=== PATIENT | female | born 1975 | race Caucasian/White ===

== ENCOUNTER 2017-12-27 20:57 | Emergency (ER) | payer OTHER ==
[2017-12-27] MEDS ORDERED: TORAdol 30 mg Injection IM ONE (21:50)
--- NOTE | 2017-12-27 21:54 | ERPHSYRPT ---
- History of Present Illness Time Seen by Provider: 12/27/17 21:51 Source: patient Exam Limitations: no limitations Patient Subjective Stated Complaint: pt states on monday she fell backwards and cought herself with her lt arm. states she has been having increased pain in her lt wrist since Triage Nursing Assessment: pt alert and oriented, answers questions approp. pt ambulatory with steady gait ntoed, respirations nonlabored with lungs cta. tenderness noted to lt wrist. cap refill and radial pulse wnl. Physician History: 42-year-old white female arrives with complaint of pain in her left wrist symptoms since Monday, 2 days ago. According to patient she fell backwards landing on her left wrist she has pain in her left wrist worse with movement. Past medical history includes ulcerative colitis. Past surgical history includes , tubal ligation. Occurred: days ago (2 days ago) Method of Injury: fell Quality: constant, aching Severity of Pain-Max: moderate Severity of Pain-Current: moderate Extremities Pain Location: wrist: left Modifying Factors: Improves With: nothing Associated Symptoms: none Allergies/Adverse Reactions: Sulfa (Sulfonamide Antibiotics) Allergy (Verified 12/27/17 21:42) Hives Home Medications: Loperamide HCl 2 mg [Imodium 2 mg] 2 mg PO DAILY 12/27/17 [History] Naproxen Sodium 220 mg [Aleve 220 MG] 220 mg PO DAILY 12/27/17 [History] Hx Tetanus, Diphtheria Vaccination/Date Given: No Hx Influenza Vaccination/Date Given: No Hx Pneumococcal Vaccination/Date Given: No Immunizations Up to Date: No - Review of Systems Constitutional: No Fever, No Chills Eyes: No Symptoms Ears, Nose, & Throat: No Symptoms Respiratory: No Cough, No Dyspnea Cardiac: No Chest Pain, No Edema, No Syncope Abdominal/Gastrointestinal: No Abdominal Pain, No Nausea, No Vomiting, No Diarrhea Genitourinary Symptoms: No Dysuria Musculoskeletal: Other (left wrist pain) Skin: No Rash Neurological: No Dizziness, No Focal Weakness, No Sensory Changes Psychological: No Symptoms Endocrine: No Symptoms All Other Systems: Reviewed and Negative - Past Medical History Pertinent Past Medical History: Yes GI Medical History: Colitis - Past Surgical History Past Surgical History: Yes Female Surgical History: Section, Tubal Ligation - Social History Smoking Status: Current every day smoker How long have you smoked: 25 Exposure to second hand smoke: No Drug Use: none Patient Lives Alone: No - Female History Hx Last Menstrual Period: 12/14/17 Hx Now: No - Nursing Vital Signs Nursing Vital Signs: Initial Vital Signs Temperature 97.9 F 12/27/17 21:30 Pulse Rate 103 H 12/27/17 21:30 Respiratory Rate 16 12/27/17 21:30 Blood Pressure 112/82 12/27/17 21:30 O2 Sat by Pulse Oximetry 100 12/27/17 21:30 Pain Scale Pain Intensity 4 - Physical Exam General Appearance: alert Eyes, Ears, Nose, Throat Exam: moist mucous membranes Neck Exam: non-tender, supple Cardiovascular/Respiratory Exam: chest non-tender, normal breath sounds, regular rate/rhythm, no respiratory distress Abdominal Exam: non-tender, No guarding Back Exam: normal inspection, No vertebral tenderness Shoulder Exam: normal inspection, non-tender, no evidence of injury, normal ROM Elbow/Forearm Exam: normal inspection, non-tender, no evidence of injury, normal ROM Wrist Exam: No normal inspection (left wrist tender with palpation and movement. Decreased range of motion left wrist secondary to pain) Hand Exam: normal inspection, non-tender, no evidence of injury, normal ROM Neuro/Tendon Exam: normal sensation, normal motor functions Mental Status Exam: alert, oriented x 3, cooperative Skin Exam: normal color, warm, dry SpO2 Interpretation: normal (100%) SpO2: 100 Oxygen Delivery: Room Air - Course Nursing assessment & vital signs reviewed: Yes - Radiology Exams Left Wrist X-ray Interpretation: Interpreted by me, Negative, No Fracture, No Subluxation Ordered Tests: Active Orders 24 hr Category Date Time Status Splint STAT Care 12/27/17 22:51 Active WRIST (MIN 3 VIEWS) Stat Exams 12/27/17 21:50 Taken Medication Summary Discontinued Medications Generic Name Dose Route Start Last Admin Trade Name Migue PRN Reason Stop Dose Admin Ketorolac Tromethamine 60 mg 12/27/17 21:50 12/27/17 22:13 Toradol 30 Mg Injection IM 12/27/17 21:51 Not Given STAT ONE Ketorolac Tromethamine Confirm 12/27/17 22:11 Toradol 30 Mg Injection Administered 12/27/17 22:12 Dose 60 mg .ROUTE .STK-MED ONE - Progress Progress: improved Progress Note: 12/27/17 22:57 X-ray patient's left wrist negative fracture negative subluxation. Will place left wristlet. Patient states she takes Aleve and Tylenol at home we'll have her continue this for pain. - Departure Time of Disposition: 22:57 Departure Disposition: Home Clinical Impression: Left wrist pain Strain of left wrist Qualifiers: Encounter type: initial encounter Qualified Code(s): S66.912A - Strain of unspecified muscle, fascia and tendon at wrist and hand level, left hand, initial encounter Condition: Fair Critical Care Time: No Referrals: DOCTOR,NO FAMILY [Primary Care Provider] - Instructions: Wrist Sprain Additional Instructions: Return home. Ice and elevate left wrist 24-48 hours. Limited use of left upper extremities 72 hours. Wear splint 48-72 hours. Follow-up with your family doctor if symptoms are worse, no better in 48 hours, or persist longer 1 week. Return for acute distress or for severe symptoms. Your x-rays have been preliminarily read they will be reread tomorrow morning. You will be contacted if any discrepancies are noted.
[2017-12-27] MEDS ORDERED: TORAdol 30 mg Injection ONE (22:11)
[2017-12-27 23:17] VITALS: BP 112/87; PULSE 98; O2SAT 98
--- NOTE | 2017-12-28 08:50 | XRAY ---
Indication: Pain following fall. Comparison: None 3 views of the left wrist obtained. No bony, articular, or soft tissue abnormalities.
== END 2017-12-27 23:17 | disposition home or self-care (01) ==
LOC: ED 20:57
DX: S66.912A Strain of unspecified muscle, fascia and tendon at wrist and hand level, left hand, initial encounter (principal); M25.532 Pain in left wrist; W19.XXXA Unspecified fall, initial encounter
CPT/HCPCS: 73110; 99283; J1885; L3908

== ENCOUNTER 2019-11-20 09:26 | Day surgery (SDC) | payer OTHER ==
[2019-11-20] MEDS ORDERED: Depo-Medrol 40 MG/ML IM ONE (09:27)
[2019-11-20] MEDS ORDERED: BUPIVACAINE 0.5% VIAL IJ ONE (09:27)
[2019-11-20] MEDS ORDERED: Xylocaine 1% Vial 30 ML PF IJ ONE (09:27)
[2019-11-20] MEDS ORDERED: Ketamine HCl 50 MG/ML ONE (11:09)
[2019-11-20] MEDS ORDERED: DIPRIVAN 200 MG/20 ML IV ONE (11:09)
[2019-11-20] MEDS ORDERED: Lactated Ringers 1,000 ML IV ONE (14:39)
--- NOTE | 2019-11-20 15:13 | XRAY ---
Indication: Right knee injection. Intraoperative fluoroscopy was provided for 5 seconds. Single digital spot image submitted for interpretation demonstrates needle tip projecting right femur intercondylar notch. Small amount of contrast injected for needle tip placement. Correlate with intraoperative findings/report.
--- NOTE | 2019-11-20 15:13 | XRAY ---
Indication: Left knee injection. Intraoperative fluoroscopy was provided for 3 seconds. Single digital spot image submitted for interpretation demonstrates needle tip projecting left femur intercondylar notch. Small amount of contrast injected for needle tip placement. Correlate with intraoperative findings/report.
--- NOTE | 2019-11-20 16:40 | XRAY ---
3 seconds of fluoroscopy was used in surgery for a left intra-articular knee injection.
--- NOTE | 2019-11-20 16:50 | XRAY ---
5 seconds of fluoroscopy was used in surgery for a right intra-articular knee injection.
== END 2019-11-20 11:33 | disposition home or self-care (01) ==
LOC: SDC-PAIN 09:26
PROVIDERS: ATTEND Psychiatry & Neurology Pain Medicine
DX: M17.0 Bilateral primary osteoarthritis of knee (principal); K50.90 Crohn's disease, unspecified, without complications; D64.9 Anemia, unspecified; F41.8 Other specified anxiety disorders; Z79.899 Other long term (current) drug therapy
CPT/HCPCS: 20610; 73560; 77002; 84703; J1030; J2001; J2704; Q9966

== ENCOUNTER 2020-05-13 10:02 | Day surgery (SDC) | payer OTHER ==
[2020-05-13] MEDS ORDERED: Depo-Medrol 40 MG/ML IM ONE (10:03)
[2020-05-13] MEDS ORDERED: BUPIVACAINE 0.5% VIAL IJ ONE (10:03)
[2020-05-13] MEDS ORDERED: DIPRIVAN 200 MG/20 ML IV ONE (11:33)
[2020-05-13] MEDS ORDERED: Ketamine HCl 50 MG/ML ONE (11:33)
--- NOTE | 2020-05-13 12:24 | XRAY ---
Indication: Left SI joint injection. Intraoperative fluoroscopy was provided for 9 seconds. 2 digital spot images submitted for interpretation demonstrates posterior needle tip projecting over the inferior left SI joint. Correlate with intraoperative findings/report.
--- NOTE | 2020-05-13 13:09 | XRAY ---
9 seconds of fluoroscopy was used in surgery for a left SI joint injection.
[2020-05-13] MEDS ORDERED: Lactated Ringers 1,000 ML IV ONE (15:54)
== END 2020-05-13 11:58 | disposition home or self-care (01) ==
LOC: SDC-PAIN 10:02
PROVIDERS: ATTEND Psychiatry & Neurology Pain Medicine
DX: M46.1 Sacroiliitis, not elsewhere classified (principal); K50.90 Crohn's disease, unspecified, without complications; D64.9 Anemia, unspecified; F41.8 Other specified anxiety disorders; G11.4 Hereditary spastic paraplegia; Z79.899 Other long term (current) drug therapy
CPT/HCPCS: 27096; 36415; 72020; 77002; 81025; G0260; J1030; J2704